=== PATIENT | female | born 1975 | race Caucasian/White ===

== ENCOUNTER 2025-01-23 19:13 | Emergency (ER) | payer OTHER ==
[~2025-01-23] VITALS: Ht 167.6 cm; Wt 69.9 kg
[2025-01-23 19:52] LABS: PLATELET COUNT (AUTO) 411 K/uL (150-450); RED BLOOD CELL COUNT(AUTO) 4.98 MIL/uL (4.0-5.2); RED CELL DISTRIBUTION WIDTH 16.6 % (11.5-15.0); WHITE BLOOD COUNT (AUTO) 11.1 K/uL (4.3-11.0)
[2025-01-23 20:06] LABS: CALCIUM, SERUM 9.5 mg/dL (8.5-10.1); CREATININE 0.7 mg/dL (0.6-1.3); SODIUM SERUM 132 mmol/L (136-145); UREA NITROGEN, BLOOD 13 mg/dL (7-18)
[2025-01-23 21:17] LABS: NT-PRO BNP 70 pg/mL (0-125)
[2025-01-23 22:41] VITALS: BP 137/84; TEMP 98; O2SAT 96
== END 2025-01-23 22:42 | disposition home or self-care (01) ==
LOC: ER 19:18
DX: R07.89 Other chest pain (principal); I10 Essential (primary) hypertension; E11.9 Type 2 diabetes mellitus without complications; E78.5 Hyperlipidemia, unspecified; R06.02 Shortness of breath; Z88.0 Allergy status to penicillin; Z98.84 Bariatric surgery status
CPT/HCPCS: 36415; 71045-TC; 80048-TC; 83880; 84484-TC; 85025-TC